=== PATIENT | male | born 1985 | race African-American/Black ===

== ENCOUNTER 2018-12-19 15:15 | Emergency (ER) | payer BC ==
[~2018-12-19] VITALS: Ht 175.3 cm; Wt 63.5 kg
[~2018-12-19 15:15] MED LIST: AMOXICILLIN500 M1 PO; CORTISPORIN OTI10 M2 OT; ERYTHROMYCIN E3.5 G3 OPHTHALMIC; NOHOMEMEDICATIONS; NORCO 5-325 TA1 EACH PO; TESSALON200 MG PO; ZPAK PO
[2018-12-19] MEDS ORDERED: GENTAMICIN OPH3.5 G1 OPHTHALMIC (15:45)
[2018-12-19 16:00] VITALS: BP 99/67
== END 2018-12-19 16:01 | disposition home or self-care (01) ==
LOC: M.ERS 15:15
DX: S00.212A Abrasion of left eyelid and periocular area, initial encounter (principal); F17.210 Nicotine dependence, cigarettes, uncomplicated; X58.XXXA Exposure to other specified factors, initial encounter; Y93.89 Activity, other specified; Y92.89 Other specified places as the place of occurrence of the external cause; Y99.8 Other external cause status